=== PATIENT | female | born 1980 | race Asian ===

== ENCOUNTER 2021-05-28 06:05 | Inpatient (IN) | payer OTHER ==
[2021-05-28] MEDS ORDERED: CITRIC ACID/SODIUM CITRATE 30 ML UNIT-DOSE CUP PO ONE ×2 (06:45→07:51)
[2021-05-28] MEDS ORDERED: ELECTROLYTE-148 SOLN 500 ML IV ONE (06:45)
[2021-05-28 07:00] VITALS: BMI 28.3
[2021-05-28] MEDS ORDERED: ELECTROLYTE-148 SOLN 1,000 ML IV SCH (07:15)
[2021-05-28] MEDS ORDERED: OXYTOCIN 20 UNITS in 0.9% NS 20 UNIT/1,000 ML INFUS.BAG IV ONE ×2 (07:33→10:15)
[2021-05-28] MEDS ORDERED: ePHEDrine SULFATE 50 MG/1 ML AMPULE ONE (07:35)
[2021-05-28] MEDS ORDERED: morphine SULFATE (PF) 1 MG/2 ML SYRINGE ONE (07:35)
[2021-05-28] MEDS ORDERED: ONDANSETRON 4 MG/2 ML VIAL ONE (07:35)
[2021-05-28] MEDS ORDERED: SODIUM CHLORIDE 0.9% P/F 10 ML VIAL IJ ONE (07:35)
[2021-05-28] MEDS ORDERED: PHENYLEPHRINE HCL 10 MG/1 ML SINGLE DOSE VIAL ONE (07:36)
[2021-05-28] MEDS ORDERED: PROPOFOL 20 ML ONE (07:39)
[2021-05-28] MEDS ORDERED: SUCCINYLCHOLINE CHLORIDE 200 MG/10 ML SYRINGE ONE (07:39)
[2021-05-28] MEDS ORDERED: ONDANSETRON 4 MG/2 ML VIAL IVPUSH PRN (09:39)
[2021-05-28] MEDS ORDERED: ACETAMINOPHEN INJECTION 100 ML IVPB ONE (10:14)
[2021-05-28] MEDS ORDERED: ceFAZolin SODIUM 1 GM VIAL ONE (10:19)
[2021-05-28] MEDS: ACETAMINOPHEN 1000 MG/100 ML VIAL IVPB SCH ×2 (10:20→15:44)
[2021-05-28] MEDS ORDERED: PROMETHAZINE HCL 25 MG/1 ML VIAL ONE (10:21)
[2021-05-28] MEDS ORDERED: ONDANSETRON 4 MG/2 ML VIAL IVPB PRN (10:22)
[2021-05-28] MEDS ORDERED: ACETAMINOPHEN 1000 MG/100 ML VIAL IVPB PRN (10:22)
[2021-05-28] MEDS ORDERED: IBUPROFEN 600 MG TABLET (FP) PO PRN (10:22)
[2021-05-28] MEDS ORDERED: IBUPROFEN 800 MG/8 ML IJ IVPB PRN (10:22)
[2021-05-28] MEDS ORDERED: ACETAMINOPHEN 325 MG TABLET (FP) PO PRN (10:22)
[2021-05-28] MEDS ORDERED: oxyCODONE HCL 5 MG TABLET PO PRN (10:22)
[2021-05-28] MEDS ORDERED: SIMETHICONE 80 MG TAB.CHEW (FP) PO PRN (10:22)
[2021-05-28] MEDS ORDERED: SENNOSIDES/DOCUSATE COMBO (SENNA PLUS) TABLET (UD) PO PRN (10:22)
[2021-05-28] MEDS ORDERED: OXYTOCIN 20 UNITS in 0.9% NS 20 UNIT/1,000 ML INFUS.BAG IV SCH (10:30)
[2021-05-28] MEDS ORDERED: PROMETHAZINE HCL 25 MG/1 ML VIAL IVPB ONE (10:48)
[2021-05-29 05:53] LABS: BASO % 0.4 % (0-2.0); EOS % 1.2 % (0-4.5); HEMATOCRIT 27.5 % (32.4-45.2); HEMOGLOBIN 9.4 GM/dL (10.7-15.3); LYMPH % 11.3 % (8-40); MCH 30.9 pg (25.7-33.7); MCHC 34.3 g/dl (32.0-36.0); MEAN CELL VOLUME 90.1 fl (80-96); MEAN PLT VOLUME 7.9 fl (7.5-11.1); MONO % 4.1 % (3.8-10.2); PLATELET COUNT 260 10^3/uL (134-434); RBC 3.05 M/mm3 (3.60-5.2); RDW 15.5 % (11.6-15.6); WHITE BLOOD COUNT 12.5 K/mm3 (4.0-10.0)
[2021-05-29] MEDS: LEVOTHYROXINE NA 50 MCG TABLET (FP) PO SCH (06:51)
[2021-05-29] MEDS ORDERED: ACETAMINOPHEN INJECTION 100 ML IVPB ONE (07:36)
[2021-05-29] MEDS ORDERED: BISACODYL 10 MG SUPP.RECT RC PRN (10:22)
[2021-05-29] MEDS: IBUPROFEN 600 MG TABLET (FP) PO PRN ×2 (14:18→19:20)
[2021-05-30] MEDS: LEVOTHYROXINE NA 50 MCG TABLET (FP) PO SCH (06:04)
[2021-05-30] MEDS: IBUPROFEN 600 MG TABLET (FP) PO PRN (06:04)
[2021-05-30 12:01] VITALS: BP 105/68; PULSE 69; TEMP 97.5
== END 2021-05-30 12:25 | disposition home or self-care (01) | DRG 540 ==
LOC: JLDR 06:05 → J3W 11:00
PROVIDERS: ADMIT Specialist; ATTEND Specialist
PROC: 10D00Z1 Extraction of Products of Conception, Low, Open Approach (ICD-10-PCS; principal; 2021-05-28)
DX: O36.63X0 Maternal care for excessive fetal growth, third trimester, not applicable or unspecified (principal); Z3A.39 39 weeks gestation of pregnancy; Z37.0 Single live birth
CPT/HCPCS: 36415; 80053; 85025; 85610; 85730; 86780; 86850; 86900; 86901; 87529; 88307-TC; C9803; J0131; U0003; U0005

== ENCOUNTER → 2021-06-06 | Day surgery (SDC) | payer OTHER | END | disposition home or self-care (01) | LOC: JRADUS 10:29 → JRADUS-SUR 10:29 → EDSTATUS 10:30 | PROVIDERS: ATTEND Specialist | PROC: 0H9U3ZX Drainage of Left Breast, Percutaneous Approach, Diagnostic (ICD-10-PCS; principal; 2021-06-06) | DX: D24.2 Benign neoplasm of left breast (principal) | CPT/HCPCS: 19083; 76641-TC-LT; 87899; 88305-TC; A4648 ==